=== PATIENT | male | born 1970 | race Caucasian/White ===

== ENCOUNTER 2017-03-05 13:52 | Emergency (ER) | payer MEDICAID ==
[2017-03-05] MEDS ORDERED: Lidocaine 1% 20 ML MDV INJECT ONE (14:19)
[2017-03-05] MEDS ORDERED: Bacitracin Oint 1 GM U/D Packet TOP ONE (14:25)
--- NOTE | 2017-03-05 14:31 | EDM.PDOC ---
ED HPI GENERAL MEDICAL PROBLEM - General Chief Complaint: Laceration Stated Complaint: HIT TOP OF HEAD Time Seen by Provider: 03/05/17 14:26 Source of Information: Reports: Patient History Limitations: Reports: No Limitations - History of Present Illness INITIAL COMMENTS - FREE TEXT/NARRATIVE: pt stood up and hit the top of his head on a door frame. He was not knocked out but he did hit very hard. He has a 2 inch laceration on the top of his head. He has somewhat of a headache. Onset: Today, Sudden Duration: Hour(s): Location: Reports: Head Associated Symptoms: Reports: No Other Symptoms, Other (pt was not knocked out. ) Head Pain Score (Numeric/FACES): 3 - Related Data Allergies Allergy/AdvReac Type Severity Reaction Status Date / Time No Known Allergies Allergy Verified 03/05/17 14:08 Home Meds: Home Meds NK [No Known Home Meds] 03/05/17 [History] Past Medical History - Past Health History Medical/Surgical History: Denies Medical/Surgical History Endocrine/Metabolic History: Reports: Obesity/BMI 30+ Social & Family History - Tobacco Use Smoking Status *Q: Never Smoker - Caffeine Use Caffeine Use: Reports: Coffee, Energy Drinks, Soda - Recreational Drug Use Recreational Drug Use: No ED ROS GENERAL - Review of Systems Review Of Systems: See Below Constitutional: Reports: No Symptoms HEENT: Reports: No Symptoms Respiratory: Reports: No Symptoms Cardiovascular: Reports: No Symptoms Endocrine: Reports: No Symptoms GI/Abdominal: Reports: No Symptoms Musculoskeletal: Reports: No Symptoms Skin: Reports: No Symptoms ED EXAM, SKIN/RASH Exam: See Below Text/Narrative:: pt arrived with a 2 inch laceration on the top of his head. he was not knocked out. Exam Limited By: No Limitations General Appearance: Alert, Mild Distress Head: Other (pt has a 2 inch laceration on the top of his head. ) Neck: Normal Inspection Respiratory/Chest: No Respiratory Distress Cardiovascular: Regular Rate, Rhythm Rectal (Males) Exam: Deferred Back Exam: Normal Inspection Extremities: Normal Inspection Course - Vital Signs Last Recorded V/S: Last Vital Signs Temp 36.0 C 03/05/17 14:10 Pulse 84 03/05/17 14:10 Resp 18 03/05/17 14:10 BP 172/94 H 03/05/17 14:10 Pulse Ox 97 03/05/17 14:10 - Orders/Labs/Meds Meds: Medications Discontinued Medications Generic Name Dose Route Start Last Admin Trade Name Clarissa PRN Reason Stop Dose Admin Bacitracin 1 dose 03/05/17 14:25 03/05/17 14:29 Bacitracin Oint 1 Gm TOP 03/05/17 14:26 1 dose ONETIME ONE Administration Lidocaine HCl 20 ml 03/05/17 14:19 03/05/17 14:29 Xylocaine 1% INJECT 03/05/17 14:20 20 ml ONETIME ONE Administration - Re-Assessments/Exams Free Text/Narrative Re-Assessment/Exam: 03/05/17 14:55 pt semed stable neurologically. His pupils were equal no vomiting and he was very alert. The area was cleansed well and ilfiltrated with lidocaine. The 2 inch wound was closd tightly with 3-0 ethilon. bacatracin was applied to the area. 03/05/17 14:56 Departure - Departure Time of Disposition: 14:57 Disposition: Home, Self-Care 01 Condition: Fair Clinical Impression: Scalp laceration - Discharge Information Referrals: PCP,None [Primary Care Provider] - Forms: ED Department Discharge Care Plan Goals: keep dry/ May wash hair when he gets home and after that keep dry. Sr in 8-10 days. Head injury sheet,
== END 2017-03-05 15:08 | disposition home or self-care (01) ==
LOC: JP.ED 13:52
DX: S01.01XA Laceration without foreign body of scalp, initial encounter (principal); W22.8XXA Striking against or struck by other objects, initial encounter
CPT/HCPCS: 12002; 99284-25

== ENCOUNTER 2022-08-17 19:57 | Emergency (ER) | payer MEDICAID | END 2022-08-17 22:20 | disposition home or self-care (01) | LOC: JP.ED 19:57 | DX: M25.511 Pain in right shoulder (principal); E66.9 Obesity, unspecified; Z68.29 Body mass index [BMI] 29.0-29.9, adult | CPT/HCPCS: 73030-26-RT; 73030-RT; 99283 ==